=== PATIENT | female | born 1980 | race Caucasian/White ===

== ENCOUNTER 2025-02-08 15:13 | Emergency (ER) | payer OTHER ==
[~2025-02-08] VITALS: Ht 157.5 cm; Wt 74.8 kg
[2025-02-08 15:31] VITALS: BP 110/72; PULSE 89; RESP 18; TEMP 98.1; O2SAT 97
[2025-02-08] MEDS ORDERED: TORADOL ONE (15:32)
[2025-02-08] MEDS ORDERED: NS 1000ML 1,000 ML ONE (15:32)
[2025-02-08] MEDS ORDERED: COMPAZINE ONE (15:32)
[2025-02-08] MEDS: COMPAZINE IV STA (15:40)
[2025-02-08] MEDS: TORADOL IV STA (15:40)
[2025-02-08] MEDS: NS 1000ML 1,000 ML STA (15:40)
[2025-02-08 15:45] LABS: BASOPHIL # 0.0 10^3/uL (0.0-0.1); BASOPHIL % 0.2 % (0.1-1.2); EOSINOPHIL # 0.1 10^3/uL (0.0-0.2); EOSINOPHIL % 0.7 % (0.0-5.0); HEMATOCRIT(ML) 43.7 % (36.0-46.0); IG % 0.10 % (0.00-0.50); LYMPHOCYTES # 1.83 10^3/uL1 (1.0-4.8); LYMPHOCYTES % 15.1 % (24.0-44.0); MEAN CORP HGB 28.8 pg (26-34); MEAN CORP HGB CONCENTRATION 33.9 g/dL (33-36.5); MEAN CORP VOLUME 85.0 fL (78-100); MONOCYTES # 0.6 10^3/uL (0.3-0.8); MONOCYTES % 5.3 % (5.0-12.0); NEUTROPHIL # 9.6 10^3/uL (1.8-7.7); NEUTROPHILS % 78.6 % (41.0-85.0); RED BLOOD CELL 5.14 10^6/uL (4.00-5.20); RED CELL DISTRIBUTION WIDTH 12.7 % (11.5-14.5); WHITE BLOOD CELL 12.2 10^3/uL (4.5-11.0)
[2025-02-08 15:48] VITALS: BP 110/72; PULSE 89; RESP 18; TEMP 98.1; O2SAT 97
[2025-02-08 15:52] LABS: LEUKOCYTE ESTERASE ,URINE 2+ (NEGATIVE); NITRATE,URINE NEGATIVE (NEGATIVE)
[2025-02-08 15:53] LABS: UA COLOR YELLOW
[2025-02-08 15:54] LABS: APPEARANCE,URINE CLOUDY
[2025-02-08 15:56] LABS: ALANINE AMINOTRANSFERASE(ML) 21.0 U/L (12-78); ALBUMIN(ML) 4.0 g/dL (3.4-5.0); CREATININE SERUM 1.15 mg/dL (0.59-1.40); EST GFR, NON-AA 51.5 (>/=60); INR 1.0; PROTHROMBIN PROTIME 10.0 SEC (9.3-11.6)
[2025-02-08 16:05] LABS: YEAST,URINE RARE (NONE SEEN)
[2025-02-08] MEDS ORDERED: ROCEPHIN 1 GM-D5W BAG 50 ML IV ONE (17:56)
[2025-02-08] MEDS: ROCEPHIN 1 GM-D5W BAG 50 ML IV STA (18:00)
[2025-02-08 18:08] VITALS: BP 94/52; PULSE 88; RESP 18; TEMP 98.1; O2SAT 97
== END 2025-02-08 18:08 | disposition home or self-care (01) ==
LOC: ER 15:13
DX: N20.0 Calculus of kidney (principal); F17.200 Nicotine dependence, unspecified, uncomplicated; Z85.41 Personal history of malignant neoplasm of cervix uteri; Z88.0 Allergy status to penicillin; Z90.710 Acquired absence of both cervix and uterus
CPT/HCPCS: 99285; 74176; 96374; 96361; 96375; 87086; 80053; 85025; 86677; 36415; 81001; 83690; 85610; 85730; 84703; J1885; J7030; J0780